=== PATIENT | male | born 1950 | race Caucasian/White ===

== ENCOUNTER 2019-08-16 00:28 | Emergency (ER) | payer OTHER ==
[~2019-08-16] VITALS: Ht 180.3 cm; Wt 72.7 kg
[2019-08-16] MEDS ORDERED: DIVA-78 PO (00:44)
[2019-08-16] MEDS ORDERED: OXYC10TA59 PO (00:44)
[2019-08-16] MEDS ORDERED: LORA-1000 PO (00:44)
[2019-08-16] MEDS ORDERED: OxyCODONE HCL/ACETAMINOPHEN 5-325 MG TABLET PO ONE (01:30)
[2019-08-16 05:35] VITALS: BP 113/71
== END 2019-08-16 06:28 | disposition home or self-care (01) ==
LOC: EMS 00:28
DX: S13.4XXA Sprain of ligaments of cervical spine, initial encounter (principal); R51 Headache; F17.210 Nicotine dependence, cigarettes, uncomplicated; F12.90 Cannabis use, unspecified, uncomplicated; W05.0XXA Fall from non-moving wheelchair, initial encounter; Y93.89 Activity, other specified; Y92.89 Other specified places as the place of occurrence of the external cause; Y99.8 Other external cause status
CPT/HCPCS: 70450; 72125